=== PATIENT | male | born 1960 | race Caucasian/White ===

== ENCOUNTER 2020-01-22 21:31 | Emergency (ER) | payer BC ==
[~2020-01-22] VITALS: Ht 198.1 cm; Wt 118.2 kg
[~2020-01-22 21:31] MED LIST: DOCU-28 PO
[2020-01-22 21:33] VITALS: BP 152/88
== END 2020-01-22 23:41 | disposition home or self-care (01) ==
LOC: ER 21:32
DX: R20.0 Anesthesia of skin (principal); R20.2 Paresthesia of skin; M79.644 Pain in right finger(s); Z86.19 Personal history of other infectious and parasitic diseases; Z98.890 Other specified postprocedural states; Z79.899 Other long term (current) drug therapy
CPT/HCPCS: 29130; 99281; 99283

== ENCOUNTER 2021-08-23 11:52 | Emergency (ER) | payer BC, OTHER ==
[~2021-08-23] VITALS: Ht 198.1 cm; Wt 118.2 kg
[2021-08-23 11:57] VITALS: BP 150/92
[2021-08-23] MEDS ORDERED: TETanus/Pertussis (Acell)/Diphther VAC/PF (Tdap-Adult) 0.5ml syringe IMVAC ONE (14:15)
[2021-08-23] MEDS ORDERED: LIDOcaine 1% W/epiNEPHrine 1:200,000 10ml vial IJ ONE (15:00)
[2021-08-23] MEDS ORDERED: LIDOcaine 1% W/epiNEPHrine 1:100,000 20ml vial IJ ONE (15:00)
[2021-08-23] MEDS ORDERED: LIDOcaine 1% 30ml preserv. free vial IJ ONE (15:05)
== END 2021-08-23 15:38 | disposition home or self-care (01) ==
LOC: ER 11:53
DX: S01.01XA Laceration without foreign body of scalp, initial encounter (principal); Z79.899 Other long term (current) drug therapy; Z86.19 Personal history of other infectious and parasitic diseases; W26.8XXA Contact with other sharp object(s), not elsewhere classified, initial encounter; Y93.89 Activity, other specified; Y92.89 Other specified places as the place of occurrence of the external cause; Y99.8 Other external cause status
CPT/HCPCS: 12002; 90471; 90715; 99283

== ENCOUNTER 2022-10-28 01:36 | Emergency (ER) | payer BC ==
[~2022-10-28] VITALS: Ht 198.1 cm; Wt 118.2 kg
[2022-10-28 01:46] VITALS: BP 132/81
[2022-10-28 03:06] LABS: HEMOGLOBIN 13.9 g/dl (14.0-17.9); MONOCYTES # (AUTO) 0.7 X10'3 (0-0.9)
[2022-10-28 03:08] LABS: BASOPHILS # (AUTO) 0.1 X10'3 (0-0.2); BASOPHILS % (AUTO) 0.3 % (0-1); EOSINOPHILS # (AUTO) 0.2 X10'3 (0-0.9); EOSINOPHILS % (AUTO) 1.4 % (0-6); HEMATOCRIT 42.1 % (42.0-52.0); LYMPHOCYTES # (AUTO) 10.4 X10'3 (1.1-4.8); LYMPHOCYTES % (AUTO) 58.4 % (21-51); MEAN CORPUSCULAR HGB CONC 33.1 g/dL (33.0-36.5); MEAN CORPUSCULAR VOLUME 84.7 FL (78-98); NEUTROPHILS # (AUTO) 6.4 X10'3 (1.8-7.7); NEUTROPHILS % (AUTO) 35.9 % (42-75); PLATELET COUNT 156 X10'3 (140-440); RED BLOOD COUNT 4.97 X10'6 (4.70-6.10); WHITE BLOOD COUNT 17.8 X10'3 (4.5-11.0)
[2022-10-28 03:36] LABS: ALANINE AMINOTRANSFERASE 22 U/L (12-78); ALBUMIN/GLOBULIN RATIO 1.2 (1.1-1.5); ALKALINE PHOSPHATASE 69 IU/L (46-116); ANION GAP 9 (8-16); ASPARTATE AMINO TRANSFERASE 13 U/L (10-37); BILIRUBIN,TOTAL 0.7 MG/DL (0.1-1.0); BLOOD UREA NITROGEN 14 MG/DL (7-18); BUN/CREATININE RATIO 12.2 (10.0-20.0); CALCIUM 9.4 MG/DL (8.5-10.1); CHLORIDE 104 MMOL/L (99-107); CREATININE 1.15 MG/DL (0.60-1.10); GLUCOSE 114 MG/DL (70-104); POTASSIUM 3.8 MMOL/L (3.5-5.1); SODIUM 139 MMOL/L (135-145); TOTAL CARBON DIOXIDE 26.5 MMOL/L (24-32); TOTAL PROTEIN 7.3 G/DL (6.4-8.2); eGFR 64 ML/MIN
[2022-10-28] MEDS ORDERED: acetaminophen 325mg tablet PO ONE (03:50)
[2022-10-28] MEDS ORDERED: azithromycin 250mg tablet PO ONE (03:50)
[2022-10-28] MEDS ORDERED: AZIT-83 PO (04:35)
[2022-10-28 05:09] LABS: CLARITY,URINE CLEAR (Clear); COLOR,URINE YELLOW (Yellow); GLUCOSE, URINE NEGATIVE (Neg); KETONES,URINE NEGATIVE (Neg); LEUKOCYTE ESTERASE ,URINE NEGATIVE (Neg); NITRITES, URINE NEGATIVE (Neg); OCCULT BLOOD,URINE MODERATE (Neg); PH,URINE 5.5 (4.8-8.0); PROTEIN,URINE NEGATIVE (Neg); UROBILINOGEN,URINE 0.2 E.U/dL (0.2-1.0)
[2022-10-28 05:15] LABS: UA COLLECTION TYPE CLN CATCH MIDSTREAM; WBC,URINE 0-4 /HPF (0-4)
[2022-10-28 05:16] LABS: BACTERIA,URINE NONE SEEN /HPF (Neg); SQUAMOUS EPITHELIAL CELL,UR NONE SEEN /LPF (FEW)
[2022-10-28 05:51] LABS: ANISOCYTOSIS FEW; PLATELET ESTIMATE NORMAL; TOTAL CELLS COUNTED 100
[2022-10-28 05:52] LABS: SMUDGE CELLS 2+
[2022-10-28 05:54] LABS: ELLIPTOCYTES 3+; TEAR DROP CELLS FEW
== END 2022-10-28 05:08 | disposition home or self-care (01) ==
LOC: ER 01:37
DX: J06.9 Acute upper respiratory infection, unspecified (principal); Z20.822 Contact with and (suspected) exposure to COVID-19; Z79.899 Other long term (current) drug therapy
CPT/HCPCS: 36415; 71045; 80053; 81001; 83605; 83880; 84145; 85007; 85025; 87040; 87502; 87503; 87811; 99284; J7030

== ENCOUNTER 2024-11-01 13:27 | Emergency (ER) | payer MEDICARE, OTHER ==
[~2024-11-01] VITALS: Ht 195.6 cm; Wt 111.4 kg
[2024-11-01 13:34] VITALS: BP 136/82; PULSE 77; RESP 19; O2SAT 99
== END 2024-11-01 14:40 | disposition home or self-care (01) ==
LOC: ER 13:27
DX: S86.112A Strain of other muscle(s) and tendon(s) of posterior muscle group at lower leg level, left leg, initial encounter (principal); W19.XXXA Unspecified fall, initial encounter; Y93.89 Activity, other specified; Y92.89 Other specified places as the place of occurrence of the external cause; Y99.8 Other external cause status
CPT/HCPCS: 99281; L4360

== ENCOUNTER 2024-11-07 11:12 | Outpatient (CLI) | payer MEDICARE, OTHER ==
--- NOTE | 2024-11-07 15:38 | RADIOLOGY REPORT ---
CLINICAL HISTORY: 64 years old, Male; RUPTURED CALF. TECHNIQUE: Multi sequence multi planar MRI images of the left lower leg were obtained without IV con trast. COMPARISON: None FINDINGS: Prominent intramuscular edema involving the medial head gastrocnemius muscle and, to a les ser extent the medial aspect of the soleus muscle and lateral head gastrocnemius muscle consistent wi th strain. Fluid collection visualized along the fascial plane between the medial head gastrocnemius muscle and soleus muscle measuring up to 0.5 cm in thickness and up to 20 cm in craniocaudal dimensio n, likely hematoma in the setting of myotendinous /myofascial tear with focal disruption of the myote ndinous junction visualized. There is surrounding moderate subcutaneous edema. No evidence of acute o sseous abnormality identified. IMPRESSION: Findings consistent with strains and myotendinous/myofascial tears in the posterior compartment of th e left lower leg, predominantly involving the medial head gastrocnemius muscle with associated hemato ma along the fascial plane between the medial head gastrocnemius and soleus muscles.
== END 2024-11-07 23:59 | disposition home or self-care (01) ==
LOC: MRI 11:12
PROVIDERS: ATTEND Family Medicine
DX: S86.019A Strain of unspecified Achilles tendon, initial encounter (principal); R60.0 Localized edema; X58.XXXA Exposure to other specified factors, initial encounter; Y93.89 Activity, other specified; Y92.89 Other specified places as the place of occurrence of the external cause; Y99.8 Other external cause status
CPT/HCPCS: 73721